=== PATIENT | female | born 1945 | race Caucasian/White ===

== ENCOUNTER 2016-12-24 05:56 | Day surgery (SDC) | payer MEDICARE ==
[~2016-12-24] VITALS: Ht 167.6 cm; Wt 89.4 kg
[~2016-12-24 05:56] MED LIST: ACETTAB3 OR; ACYCLOVIR800 MG OR; ALDACTONE25 MG OR; ALPRAZOLAM0.5 MG PO; AMITRIPTYLIN25 MG PO; AMITRIPTYLIN50 MG PO; ARICEPT10 MG OR; B-12 DOTS500 MCG SL; CEPHALEXIN500 M1 PO; CIPROFLOXACN500 MG PO; CITALOPRAM20 MG OR; CITALOPRAM20 MG PO; CLONAZEPAM0.5 MG PO; DONEPEZIL10 MG PO; DONEPEZIL5 MG PO; DOXYCYCL HYC100 MG OR; EFFEXOR XR75 MG PO; ELAVIL50 MG; FUROSEMIDE20 MG PO; INDOMETHACIN25 MG PO; KLOR-CON M15 OR; LEVOTHYROXIN25 MC1 OR; LEVOTHYROXIN75 MC1 OR; LEVOTHYROXIN75 MC1 PO; LEVOTHYROXIN75 MCG OR; LEXAPRO20 MG OR; LORTAB5 OR; MEDDOSEPAK OR; MULTI VITAMIN D1 TAB; NAMENDA10 MG OR; NAMENDA10 MG PO; OXYBUTYNIN10 MG PO; PLAVIX75 MG OR; PLAVIX75 MG PO; PRAVASTATIN20 MG OR; PRAVASTATIN40 MG OR; PRILOSEC20 MG OR; PROTONIX40 M2 PO; QUESTRAN4 G1 PO; ROPINIROLE1 MG PO; SPIRONOLACT25 MG OR; TYLENOL325 M1; XANAX XR1 MG OR; XANAX2 MG OR
[2016-12-24 07:34] VITALS: BP 115/58
== END 2016-12-24 08:05 | disposition home or self-care (01) ==
LOC: ORM 05:56
PROVIDERS: ATTEND Anesthesiology Pain Medicine
PROC: 3E0U33Z Introduction of Anti-inflammatory into Joints, Percutaneous Approach (ICD-10-PCS; principal; 2016-12-24)
PROC: 3E0U3BZ Introduction of Anesthetic Agent into Joints, Percutaneous Approach (ICD-10-PCS; 2016-12-24)
DX: M46.1 Sacroiliitis, not elsewhere classified (principal); M54.5 Low back pain